=== PATIENT | female | born 1985 | race Caucasian/White ===

== ENCOUNTER 2018-07-04 10:52 | Emergency (ER) | payer OTHER ==
--- NOTE | 2018-07-04 12:41 | RAD ---
3 VIEW RIGHT SHOULDER: Date: 07/04/18 INDICATION: Injury with pain. FINDINGS: Reference made to the 07/06/12 exam. There is no fracture or dislocation. No consolidation of the imaged chest. IMPRESSION: No acute osseous abnormality of the right shoulder. POS: [facility]
--- NOTE | 2018-07-04 12:42 | RAD ---
FRONTAL VIEW CHEST 3 VIEW LEFT RIB SERIES: Date: 07/04/18 INDICATION: Injury, pain. FINDINGS: There is no evidence of consolidation, effusion, or pneumothorax. No free air beneath the hemidiaphra gms. Cardiac silhouette is normal in size. There is no displaced left rib fracture. IMPRESSION: No acute abnormality. POS: [facility]
== END 2018-07-04 13:04 | disposition home or self-care (01) ==
LOC: ERS 10:52 → EEVIPCON 10:52 → ERS 13:04
DX: S40.011A Contusion of right shoulder, initial encounter (principal); S20.212A Contusion of left front wall of thorax, initial encounter; M06.9 Rheumatoid arthritis, unspecified; G43.909 Migraine, unspecified, not intractable, without status migrainosus; F41.9 Anxiety disorder, unspecified; F17.210 Nicotine dependence, cigarettes, uncomplicated; Y04.8XXA Assault by other bodily force, initial encounter; Z79.899 Other long term (current) drug therapy
CPT/HCPCS: 99406

== ENCOUNTER 2022-05-31 08:07 | Outpatient (CLI) | payer MEDICAID | END 2022-05-31 08:08 | disposition home or self-care (01) | LOC: BICMAMMO 08:07 | PROVIDERS: ATTEND Family Medicine | DX: N63.21 Unspecified lump in the left breast, upper outer quadrant (principal) | CPT/HCPCS: 77066; G0279 ==